=== PATIENT | male | born 1970 ===

== ENCOUNTER 2020-06-23 05:35 | Day surgery (SDC) | payer OTHER ==
[~2020-06-23] VITALS: Ht 170.2 cm; Wt 77.0 kg
[2020-06-23] VITALS (8 sets, daily range): BP systolic 96–127; BP diastolic 55–79
[~2020-06-23 05:35] MED LIST: CALC625T9; DOCU100C38 PO; IBUP-1984 PO; TRIA16.911 BOTHNARES; ceFAZolin 2gm in dextrose, iso 50 ML IV ONE; famotidine 20mg tablet PO ONE; ringers solution, lacted 1,000 ML IV SCH
[2020-06-23] MEDS ORDERED: LIDOcaine 1% (10mg/ml) 2ml vial ONE (06:22)
[2020-06-23] MEDS ORDERED: BUPIVAcaine/PF 2.5mg/ml (0.25%) 10ml vial ONE (07:11)
[2020-06-23] MEDS ORDERED: fentaNYL/PF 50MCG/1 ML 2ML syringe ONE (08:39)
[2020-06-23] MEDS ORDERED: midazolam 2 mg/2 ml injection ONE (08:40)
[2020-06-23] MEDS ORDERED: propofol inj 20 ML IV ONE (08:42)
[2020-06-23] MEDS ORDERED: sevoflurane 250ml liquid IH ONE (08:57)
[2020-06-23] MEDS ORDERED: morphine 4 MG/ML inj SYRINge IV PRN (09:40)
[2020-06-23] MEDS ORDERED: ondansetron/PF 4mg/2ml inj IV PRN (09:40)
[2020-06-23] MEDS ORDERED: morphine 2 MG/ML inj. syringe IV PRN (09:40)
[2020-06-23] MEDS ORDERED: proCHLORperazine 10 MG/2 ml inj IV PRN (09:40)
[2020-06-23] MEDS ORDERED: meperidine/PF 25mg/ml syringe IV PRN ×3 (09:40)
[2020-06-23] MEDS ORDERED: ringers solution, lacted 1,000 ML IV SCH (09:40)
[2020-06-23] MEDS ORDERED: ROPIVAcaine 0.5% (5mg/ml) 30ml vial ONE (09:50)
--- NOTE | 2020-06-23 10:07 | NUR ---
Received from OR via [facility] , accompanied by Anesthesiologist JOSE ROBERTO and report given by Anesthesiolgist. PATIENT WITH 20G PIV IN LEFT UE RUNNING LR AT 100. 10L MASK ON WITH 100% SATURATIONS. VSS. RIGHT WRIST AND HAND WITH KRISTINA WRAP PRESENT. + CAP REFILL AND PRESENTS WITH JERGENS BALL TO INDEX FINGER. Addendum: 06/23/20 at 1018 by Adam Cunha RN, RN Amended: Links added.
--- NOTE | 2020-06-23 11:07 | NUR ---
PATIENT VERBALIZED UNDERSTANDING, OPPORTUNITY TO ASK QUESTIONS GIVEN AND PATIENT COMFORTABLE WITH DC. IV TAKEN OUT WITHOUT COMPLICATION. PATIENT HAS MET ALL DC CRITERIA FOR DC HOME. I HAVE REVIEWED D/C INSTRUCTIONS WITH PATIENT. TAKEN OUT VIA WHEELCHAIR WHERE PATIENT WAS TAKEN HOME WITH ALL BELONGINGS. SHER GAVE PATIENT TRANSPORT HOME VIA VAN, AMBULATED, VOIDED AND DENIES PAIN. ASSISTED SELF INTO VAN WITH 2 GARAMONE. Addendum: 06/23/20 at 1153 by Adam Carvalho - RACHAEL CANO Amended: Links added.
--- NOTE | 2020-06-23 11:07 | NUR ---
PATIENT INSTRUCTED AND ENCOURAGED TO DEEP BREATHE AND COUGH Q 10 MINUTES WHILE IN RR. Addendum: 06/23/20 at 1153 by Adam Cunha RN, RN Amended: Links added.
== END 2020-06-23 11:07 ==
LOC: PAS 05:35 → EEVIPCON 08:30 → PAS 11:07
PROVIDERS: ATTEND Orthopaedic Surgery
DX: S63.280A Dislocation of proximal interphalangeal joint of right index finger, initial encounter (principal); E78.5 Hyperlipidemia, unspecified; Z88.0 Allergy status to penicillin; Z79.899 Other long term (current) drug therapy; Z86.16 Personal history of COVID-19; X58.XXXA Exposure to other specified factors, initial encounter; Y93.89 Activity, other specified; Y92.89 Other specified places as the place of occurrence of the external cause; Y99.8 Other external cause status
CPT/HCPCS: 26785; 82948; 93005; C1713; J2001; J2250; J2704; J3010; J3490; A4618; A6449; A7000; J2795; J7120